=== PATIENT | female | born 1965 | race Caucasian/White ===

== ENCOUNTER 2017-08-19 11:30 | Inpatient (IN) | payer BC ==
[~2017-08-19] VITALS: Ht 170.2 cm; Wt 83.5 kg
--- NOTE | 2017-08-19 04:30 | NUR ---
Pt admitted from ER. A&Ox4. Came in for dizziness and syncopal episode this am. Assisted to bed from w/c. Noted with R hand heplock 20gauge. Denies dizziness and nausea at this time. VS stable. Reported she usually has sciatica pain, but denies pain at this time. Checklist done. ID band placed. Telemetry placed. Inventory check done. Bed in lowest position, locked, bed alarm on. Call light within reach. Will continue to monitor.
[2017-08-19] MEDS ORDERED: VIMOVO PO (11:38)
[2017-08-19] MEDS ORDERED: AMLO10TA2 PO (11:38)
--- NOTE | 2017-08-19 11:46 | NUR ---
Patient is resting comfortably in bed with eyes closed, NAD noted.
--- NOTE | 2017-08-19 12:58 | NUR ---
Patient is resting comfortably in bed with eyes closed, awaiting to be seen by MD. family at the bedside.
[2017-08-19] MEDS ORDERED: IV NS 1000 ML 1,000 ML IV ONE (13:30)
[2017-08-19 14:03] LABS: BASOPHILS % (AUTO) 0.5 % (0.0-2.0); EOSINOPHILS % (AUTO) 0.4 % (0.0-7.0); HEMATOCRIT 37.1 % (31.2-41.9); HEMOGLOBIN 12.4 g/dL (10.9-14.3); LYMPHOCYTES # (AUTO) 0.7 K/uL (20.0-40.0); LYMPHOCYTES % (AUTO) 8.9 % (20.5-51.5); MEAN CORPUSCULAR HEMOGLOBIN 29.7 uug (24.7-32.8); MEAN CORPUSCULAR HGB CONC 34 g/dL (32.3-35.6); MEAN CORPUSCULAR VOLUME 88.8 fL (75.5-95.3); MONOCYTES # (AUTO) 0.7 K/uL (2.0-10.0); NEUTROPHILS # (AUTO) 6.7 K/uL (1.8-8.9); NEUTROPHILS % (AUTO) 82.2 % (38.5-71.5); PLATELET COUNT (AUTO) 275 K/uL (179-408); RED BLOOD CELL COUNT(AUTO) 4.18 MIL/uL (3.63-4.92); WHITE BLOOD COUNT (AUTO) 8.2 K/uL (3.8-11.8)
[2017-08-19 14:08] LABS: POTASSIUM 4.8 mmol/L (3.5-5.1)
[2017-08-19 14:12] LABS: BILIRUBIN,TOTAL 0.2 mg/dL (0.2-1.0); TOTAL PROTEIN, SERUM 7.4 g/dL (6.4-8.2)
--- NOTE | 2017-08-19 14:16 | NUR ---
Pt c/o dizziness on movement even in bed. aware.
--- NOTE | 2017-08-19 14:50 | NUR ---
Pt denies nausea and requesting lunch.
[2017-08-19 15:00] LABS: *BILIRUBIN,URIN NEGATIVE (NEGATIVE); *BLOOD, URINE NEGATIVE (NEGATIVE); *CLARITY,URINE CLEAR (CLEAR); *COLOR,URINE YELLOW (YELLOW); *KETONES,URINE NEGATIVE (NEGATIVE); *PROTEIN,URINE NEGATIVE (NEGATIVE); *UROBILINOGEN,URINE 0.2 E.U./dl (NORMAL); LEUKOCYTE ESTERASE ,URINE NEGATIVE (NEGATIVE); NITRITE, URINE NEGATIVE (NEGATIVE)
--- NOTE | 2017-08-19 15:01 | NUR ---
Lunch provided, ate 100% of tray.
[2017-08-19 15:15] LABS: UGLUCOSE 2+ (NEGATIVE)
[2017-08-19 15:20] LABS: MUCUS,URINE FEW /LPF (0-FEW); SQUAMOUS EPITHELIAL CELL,UR FEW /HPF (NONE SEEN); WBC,URINE 0-3 /HPF (0-3)
[2017-08-19] MEDS ORDERED: ONDANSETRON 4 MG/2 ML VIAL ONE (15:24)
[2017-08-19] MEDS ORDERED: PANTOPRAZOLE SODIUM IV 40 MG in IV DEXTROSE 5% 100 ML IV ONE (15:28)
[2017-08-19] MEDS ORDERED: ONDANSETRON IV *ER 4 MG/2 ML VIAL IV ONE ×2 (15:30)
[2017-08-19] MEDS ORDERED: IV NORMAL SALINE 500 ML IV ONE (15:30)
[2017-08-19] MEDS ORDERED: MECLIZINE HCL 25 MG TABLET PO ONE (15:30)
[2017-08-19] MEDS ORDERED: PANTOPRAZOLE SODIUM 40 MG VIAL ONE (15:44)
[2017-08-19] MEDS ORDERED: PANTOPRAZOLE SODIUM 40 MG VIAL IV ONE (15:45)
[2017-08-19] MEDS ORDERED: MORPHINE SULFATE 2 MG/1 ML DISP.SYRIN IV ONE (15:49)
[2017-08-19] MEDS ORDERED: MORPHINE SULFATE 4 MG/1 ML DISP.SYRIN ONE (15:52)
[2017-08-19] MEDS ORDERED: Z GUARD REMEDY PASTE 57 GM TUBE TOP PRN (16:45)
[2017-08-19] MEDS ORDERED: ONDANSETRON 4 MG/2 ML VIAL IV PRN (16:45)
[2017-08-19] MEDS ORDERED: MAGNESIUM HYDROXIDE 30 ML LIQUID UDC PO PRN (16:45)
[2017-08-19] MEDS ORDERED: ACETAMINOPHEN 325 MG TABLET PO PRN (16:45)
[2017-08-19] MEDS ORDERED: DEXTROSE 50% 50 ML DISP.SYRIN IV PRN (16:45)
[2017-08-19] MEDS: IV NS 1000 ML 1,000 ML IV PRN (17:59)
[2017-08-19] MEDS: BLOOD SUGAR DIAGNOSTIC 1 EACH STRIP VI SCH ×3 (18:13→20:43)
[2017-08-19] MEDS: INSULIN REGULAR, HUMAN 300 UNIT/3 ML VIAL SQ PRN (18:19)
[2017-08-19] MEDS ORDERED: MORPHINE SULFATE 2 MG/1 ML DISP.SYRIN IV PRN (18:30)
[2017-08-19] MEDS: ONDANSETRON 4 MG/2 ML VIAL IV PRN (18:48)
--- NOTE | 2017-08-19 19:19 | NUR ---
pt c/o nausea and 8/10 sciatica pain. per pt, she cannot tolerate medications by mouth at this time due to her nausea. notified MD and obtained new order to d/c zofran 2mg IV Q6hrs PRN, start Zofran 2mg IV Q4hrs PRN, and Morphine 2mg IV Q4hs PRN for pain. Noted and carried out. Pt made aware. Addendum: 08/19/17 at 1939 by SAMEER GROVES RN incorrect time. correct time is 1840
[2017-08-19] MEDS: MORPHINE SULFATE 4 MG/1 ML DISP.SYRIN IV PRN (20:35)
[2017-08-19] MEDS: INSULIN REGULAR, HUMAN 300 UNITS/3 ML VIAL SQ PRN (20:45)
[2017-08-19 20:53] VITALS: BP 111/72
[2017-08-20] VITALS: BP 120/71
[2017-08-20] MEDS: MORPHINE SULFATE 4 MG/1 ML DISP.SYRIN IV PRN ×4 (00:26→19:51)
[2017-08-20] MEDS: BENZONATATE 100 MG CAPSULE PO PRN ×3 (01:39→19:59)
[2017-08-20] MEDS: ZOLPIDEM 5 MG TABLET PO PRN (01:42)
[2017-08-20 04:00] VITALS: BP 106/67
[2017-08-20] MEDS: IV NS 1000 ML 1,000 ML IV PRN ×2 (04:55→20:06)
--- NOTE | 2017-08-20 05:37 | NUR ---
C/O PAIN ON BUTTOCKS RADIATING TO R ANKLE THROUGHOUT THE NIGHT, WAS GIVEN MORPHINE ORDERED, PT STATED EFFECTED, WAS GIVEN AMBIEN LAST NIGHT , SHE SAID SHE WAS ABLE TO SLEEP AFTERWARDS. STILL ON IV FLUIDS. AMBULATED TO BATHROOM. C/O PRODUCTIVE COUGH, TONY HIGGINBOTHAM MADE AWARE, WITH NEW ORDER TO GIVE TESSALON PRN. CONTINUED TO MONITOR. SAFETY MEASURES MAINTAINED. CALL LIGHT WITHIN REACH.
[2017-08-20 06:24] LABS: BASOPHILS % (AUTO) 0.3 % (0.0-2.0); EOSINOPHILS # (AUTO) 0.1 K/uL (0.0-0.7); EOSINOPHILS % (AUTO) 1.6 % (0.0-7.0); HEMATOCRIT 33.7 % (31.2-41.9); HEMOGLOBIN 11.5 g/dL (10.9-14.3); LYMPHOCYTES # (AUTO) 1.2 K/uL (20.0-40.0); LYMPHOCYTES % (AUTO) 18.1 % (20.5-51.5); MEAN CORPUSCULAR HEMOGLOBIN 30.4 uug (24.7-32.8); MEAN CORPUSCULAR HGB CONC 34 g/dL (32.3-35.6); MONOCYTES # (AUTO) 0.7 K/uL (2.0-10.0); MONOCYTES % (AUTO) 10.1 % (0.0-11.0); NEUTROPHILS # (AUTO) 4.6 K/uL (1.8-8.9); NEUTROPHILS % (AUTO) 69.9 % (38.5-71.5); PLATELET COUNT (AUTO) 241 K/uL (179-408); RED BLOOD CELL COUNT(AUTO) 3.78 MIL/uL (3.63-4.92); WHITE BLOOD COUNT (AUTO) 6.6 K/uL (3.8-11.8)
[2017-08-20 06:40] LABS: CREATININE 0.8 mg/dL (0.6-1.3); MAGNESIUM 1.5 mg/dL (1.8-2.4); PHOSPHOROUS 2.9 mg/dL (2.5-4.9); POTASSIUM 3.7 mmol/L (3.5-5.1)
[2017-08-20] MEDS: BLOOD SUGAR DIAGNOSTIC 1 EACH STRIP VI SCH ×4 (07:14→20:02)
--- NOTE | 2017-08-20 07:15 | NUR ---
BS 170. ENDORSED TO AM NURSE.
--- NOTE | 2017-08-20 07:30 | NUR ---
Received report from shift coordinator nurse, patient in bed awake, no evidence of distress noted at this time, bed in low position, side rails up x2. Bed alarm on. Requested that patient not get up for the first time without assistance for gait evaluation.
[2017-08-20] MEDS: INSULIN REGULAR, HUMAN 300 UNIT/3 ML VIAL SQ PRN ×2 (10:01→12:40)
[2017-08-20 11:20] VITALS: BP 108/64
[2017-08-20] MEDS: MAGNESIUM SULFATE/D5W 100 ML IV SCH ×2 (11:52→13:40)
[2017-08-20 15:38] VITALS: BP 107/72
[2017-08-20] MEDS: GABAPENTIN 300 MG CAPSULE PO SCH (17:11)
--- NOTE | 2017-08-20 17:30 | NUR ---
Patient was placed on isolation for influenza B.
--- NOTE | 2017-08-20 18:46 | NUR ---
Patient has been compliant with care. No episodes of syncope today. Patient did however need some help ambulating to restroom due to mild dizziness. Currently patient in bed, no distress noted, bed in low position, side rails up x2.
--- NOTE | 2017-08-20 19:00 | NUR ---
Received patient awake, in bed, complaining of IV site and low back pain that radiating to her right leg. Assessed intensity, duration and frequency of pain. Instructed patient some non pharmaceutical measures to relieve discomforts.eturn demonstration like deep breathing exercises. Will monitor.
--- NOTE | 2017-08-20 19:51 | NUR ---
Morphine given as ordered and needed.Will continue to monitor.
[2017-08-20] MEDS: INSULIN REGULAR, HUMAN 300 UNITS/3 ML VIAL SQ PRN (19:57)
[2017-08-20] MEDS: OSELTAMIVIR PHOSPHATE 75 MG CAPSULE PO SCH (19:58)
[2017-08-20 20:27] VITALS: BP 118/62
--- NOTE | 2017-08-20 21:00 | NUR ---
Assisted to the bathroom. Complaining of dizziness. Safety measures and fall precaution maintained.
--- NOTE | 2017-08-20 22:54 | NUR ---
Tylenol given for complaint of headache. Will monitor.
[2017-08-21 00:13] VITALS: BP 114/71
[2017-08-21] MEDS: MORPHINE SULFATE 4 MG/1 ML DISP.SYRIN IV PRN (01:37)
[2017-08-21] MEDS ORDERED: PSEUDOEPHEDRINE HCL 30 MG TABLET PO PRN (02:15)
[2017-08-21] MEDS: ZOLPIDEM 5 MG TABLET PO PRN (02:31)
[2017-08-21 04:16] VITALS: BP 100/64
--- NOTE | 2017-08-21 06:15 | NUR ---
Slept in between care. No further complaint of buttock and left leg pain presented. IV site slightly red and complaint of pain when touched . Three people attempted to insert new IV site but to no avail. Will endorse to oncoming nurse otherwise no significant event reported all night. Continue current plan of care.
[2017-08-21] MEDS: BLOOD SUGAR DIAGNOSTIC 1 EACH STRIP VI SCH ×2 (06:32→11:49)
--- NOTE | 2017-08-21 07:20 | NUR ---
Received report from night nurse nurse, patient in bed awake, no evidence of distress noted at this time, bed in low position, side rails up x2, bed alarm on.
[2017-08-21] MEDS: OSELTAMIVIR PHOSPHATE 75 MG CAPSULE PO SCH (08:30)
[2017-08-21] MEDS: HYDROCODONE/APAP 5-325MG TABLET PO PRN ×2 (08:30→16:04)
[2017-08-21] MEDS: GABAPENTIN 300 MG CAPSULE PO SCH ×2 (08:30→12:13)
[2017-08-21] MEDS: ONDANSETRON 4 MG/2 ML VIAL IV PRN (08:32)
[2017-08-21 11:40] VITALS: BP 107/68
[2017-08-21] MEDS: INSULIN REGULAR, HUMAN 300 UNIT/3 ML VIAL SQ PRN (12:11)
[2017-08-21] MEDS ORDERED: GABA-534 PO (12:20)
[2017-08-21] MEDS ORDERED: OSEL75CA PO (12:20)
[2017-08-21 16:17] VITALS: BP 107/63
--- NOTE | 2017-08-21 17:00 | NUR ---
Patient was given discharge instructions, pharmacy consultation for new medications, and IV was removed. All patient education performed for discharge and prescription given to patient. Patient was taken to parking lot by wheel chair to be met by room mate.
== END 2017-08-21 17:00 | disposition home or self-care (01) | DRG 866 ==
LOC: ER 11:30 → TELE 16:05
PROVIDERS: ADMIT Internal Medicine; ATTEND Internal Medicine
DX: J10.2 Influenza due to other identified influenza virus with gastrointestinal manifestations (principal); E83.42 Hypomagnesemia; E86.0 Dehydration; M54.30 Sciatica, unspecified side; I95.1 Orthostatic hypotension; I10 Essential (primary) hypertension; E11.9 Type 2 diabetes mellitus without complications; R11.2 Nausea with vomiting, unspecified
CPT/HCPCS: 36415; 70030-TC; 70450; 71045; 83735; 84100; 85025; 85610; 87400; 93005; 93307; 97165; A4663; C9113; J1815; J2270; J2405; J3475; J7030

== ENCOUNTER 2020-11-03 10:14 | Inpatient (IN) | payer BC, OTHER ==
[2020-11-03] VITALS (9 sets, daily range): BP systolic 95–138; BP diastolic 59–95
[~2020-11-03] VITALS: Ht 172.7 cm; Wt 82.1 kg
[~2020-11-03 10:14] MED LIST: AMLO10TA59 PO; GABA-534 PO; OSEL75CA PO; VIMOVO PO
[2020-11-03] MEDS ORDERED: HYDR12.55 PO (10:33)
[2020-11-03] MEDS ORDERED: ATOR10TA PO (10:33)
[2020-11-03] MEDS ORDERED: DAPA5TAB PO (10:33)
[2020-11-03] MEDS ORDERED: FEXO180T94 PO (10:33)
[2020-11-03] MEDS ORDERED: METF-495 PO (10:33)
[2020-11-03] MEDS ORDERED: ONDANSETRON 4 MG/2 ML VIAL IV ONE (10:45)
[2020-11-03] MEDS ORDERED: HYDROCODONE/APAP 5-325MG TABLET PO ONE (10:45)
[2020-11-03] MEDS ORDERED: HYDROCODONE/APAP 5-325MG TABLET ONE (10:47)
--- NOTE | 2020-11-03 10:48 | NUR ---
left 114/81 right 116/55 pulse same at 103
[2020-11-03] MEDS ORDERED: ONDANSETRON 4 MG/2 ML VIAL ONE (10:50)
--- NOTE | 2020-11-03 11:04 | NUR ---
Pt c/o dyspnea, primarily w/max inhailation and movement. Also c/o CP and upper back pain. Pt denies cough, dizziness, n/v, no distress noted. EKG to . Started IV 20g, left AC, ayan blood, given to general laborer.
[2020-11-03 11:09] LABS: BASOPHILS % (AUTO) 0.4 % (0.0-2.0); EOSINOPHILS # (AUTO) 0.3 K/uL (0.0-0.7); EOSINOPHILS % (AUTO) 2.9 % (0.0-7.0); HEMATOCRIT 44.3 % (31.2-41.9); LYMPHOCYTES # (AUTO) 2.8 K/uL (20.0-40.0); LYMPHOCYTES % (AUTO) 31.9 % (20.5-51.5); MEAN CORPUSCULAR HEMOGLOBIN 30.8 uug (24.7-32.8); MEAN CORPUSCULAR HGB CONC 34 g/dL (32.3-35.6); MEAN CORPUSCULAR VOLUME 90.9 fL (75.5-95.3); MONOCYTES # (AUTO) 0.7 K/uL (2.0-10.0); MONOCYTES % (AUTO) 7.7 % (0.0-11.0); NEUTROPHILS % (AUTO) 57.1 % (38.5-71.5); PLATELET COUNT (AUTO) 285 K/uL (179-408); RED BLOOD CELL COUNT(AUTO) 4.87 MIL/uL (3.63-4.92); WHITE BLOOD COUNT (AUTO) 8.8 K/uL (3.8-11.8)
[2020-11-03 11:10] LABS: CREATININE 0.9 mg/dL (0.6-1.3); POTASSIUM 3.2 mmol/L (3.5-5.1)
[2020-11-03 11:24] LABS: BILIRUBIN,TOTAL 0.3 mg/dL (0.2-1.0); TOTAL PROTEIN, SERUM 8.4 g/dL (6.4-8.2)
[2020-11-03] MEDS ORDERED: IV NORMAL SALINE 1000 ML BAG IV ONE ×2 (11:30→13:15)
--- NOTE | 2020-11-03 11:45 | NUR ---
Pt was desaturating to 89-90%, placed pt on 2lpm O2, via NC. Sats incresed to 94+%
[2020-11-03] MEDS ORDERED: SWABABLE VALVE TRANSFER SET EA MC ONE (12:02)
[2020-11-03] MEDS ORDERED: IOHEXOL 350 100 ML INFUS..BTL ONE (12:02)
[2020-11-03] MEDS ORDERED: IV NORMAL SALINE 250 ML IV ONE (12:02)
[2020-11-03] MEDS ORDERED: MORPHINE SULFATE 2 MG/1 ML DISP.SYRIN IV ONE (12:15)
[2020-11-03] MEDS ORDERED: MORPHINE SULFATE 2 MG/1 ML DISP.SYRIN ONE (12:58)
[2020-11-03] MEDS ORDERED: levoFLOXacin 750 MG/D5W 150 ML PIGGYBACK IV ONE (13:15)
[2020-11-03] MEDS ORDERED: KETOROLAC TROMETHAMINE 15 MG INJ IVP ONE (13:15)
[2020-11-03] MEDS ORDERED: KETOROLAC TROMETHAMINE 15 MG INJ ONE (13:37)
[2020-11-03] MEDS ORDERED: levoFLOXacin 750MG/D5W 150 ML IV ONE (13:39)
[2020-11-03] MEDS ORDERED: DEXTROSE 50% 50 ML DISP.SYRIN IV PRN (13:45)
[2020-11-03] MEDS ORDERED: ACETAMINOPHEN 650 MG SUPP.RECT RC PRN (13:45)
[2020-11-03] MEDS ORDERED: DEXAMETHASONE SOD PHOSPHATE 4 MG INJ IV ONE (13:45)
--- NOTE | 2020-11-03 13:48 | NUR ---
no tele bed available at this time.
[2020-11-03] MEDS ORDERED: FEXOFENADINE HCL 180 MG TABLET PO PRN (14:00)
--- NOTE | 2020-11-03 14:51 | NUR ---
Called report to YUAN Mark. Pt now going to CCU 3.
--- NOTE | 2020-11-03 15:28 | NUR ---
Received report from ER nurse Yoav. Patient brought up to unit, oriented call light system, bed mechanics and television usage. Patient assessment performed, Bedside commode given and placed on 2L nasal cannula. Patient noted to bee in sinus rhythm, hemodynamically stable and complains of pain in back and chest with movement.
[2020-11-03 15:54] LABS: *BILIRUBIN,URIN NEGATIVE (NEGATIVE); *BLOOD, URINE NEGATIVE (NEGATIVE); *CLARITY,URINE SLIGHTLY CLOUDY (CLEAR); *COLOR,URINE YELLOW (YELLOW); *KETONES,URINE NEGATIVE (NEGATIVE); *UROBILINOGEN,URINE 0.2 E.U./dl (NORMAL); LEUKOCYTE ESTERASE ,URINE NEGATIVE (NEGATIVE); NITRITE, URINE NEGATIVE (NEGATIVE); UGLUCOSE 2+ (NEGATIVE)
[2020-11-03 16:04] LABS: BACTERIA,URINE NONE SEEN /HPF (NONE SEEN); RBC,URINE 0-3 /HPF (0-3); SQUAMOUS EPITHELIAL CELL,UR MODERATE /HPF (NONE SEEN); WBC,URINE 0-3 /HPF (0-3)
[2020-11-03] MEDS ORDERED: POTASSIUM CHLORIDE 20 MEQ TAB.PRT.SR PO ONE (16:45)
[2020-11-03] MEDS: CEFTRIAXONE 1 G in IV DEXTROSE 5% 50 ML IV SCH (17:02)
[2020-11-03] MEDS: BLOOD SUGAR DIAGNOSTIC 1 EACH STRIP VI SCH ×2 (17:03→21:12)
[2020-11-03] MEDS: ATORVASTATIN 10 MG TABLET PO SCH (17:04)
[2020-11-03] MEDS: HYDROCODONE/APAP 10-325 MG TABLET PO PRN (17:35)
[2020-11-03] MEDS: ONDANSETRON 4 MG/2 ML VIAL IV PRN (17:35)
[2020-11-03] MEDS: AZITHROMYCIN IV 500 MG in IV DEXTROSE 5% 250 ML IV SCH (20:03)
[2020-11-03] MEDS: ENOXAPARIN SODIUM 40 MG/0.4 ML DISP.SYRIN SQ SCH (20:29)
[2020-11-03] MEDS: ACETAMINOPHEN 325 MG TABLET PO PRN (20:40)
--- NOTE | 2020-11-03 20:45 | NUR ---
Patient started on incentive spirometry. Patient instructed on use of the device. Initial inspiration measurement measures >250mL. Informed patient that the goal for tonight is to see if she can reach the 500mL level by 7am, however any improvement beyond the initial 250mL volume will be welcome. Patient seemed enthusiastic about using the device.
[2020-11-03] MEDS: INSULIN REGULAR, HUMAN 300 UNITS/3 ML VIAL SQ PRN (21:14)
[2020-11-04] VITALS (12 sets, daily range): BP systolic 104–135; BP diastolic 64–80
[2020-11-04] MEDS: ZOLPIDEM 5 MG TABLET PO PRN (02:03)
[2020-11-04 05:29] LABS: BASOPHILS % (AUTO) 0.3 % (0.0-2.0); HEMATOCRIT 41.5 % (31.2-41.9); HEMOGLOBIN 13.8 g/dL (10.9-14.3); LYMPHOCYTES % (AUTO) 10.6 % (20.5-51.5); MEAN CORPUSCULAR HEMOGLOBIN 30.6 uug (24.7-32.8); MEAN CORPUSCULAR HGB CONC 33 g/dL (32.3-35.6); MEAN CORPUSCULAR VOLUME 91.8 fL (75.5-95.3); MONOCYTES # (AUTO) 0.2 K/uL (2.0-10.0); MONOCYTES % (AUTO) 1.7 % (0.0-11.0); NEUTROPHILS # (AUTO) 7.9 K/uL (1.8-8.9); NEUTROPHILS % (AUTO) 87.4 % (38.5-71.5); PLATELET COUNT (AUTO) 263 K/uL (179-408); RED BLOOD CELL COUNT(AUTO) 4.53 MIL/uL (3.63-4.92); WHITE BLOOD COUNT (AUTO) 9.1 K/uL (3.8-11.8)
[2020-11-04 06:30] LABS: CREATININE 0.8 mg/dL (0.6-1.3); POTASSIUM 4.2 mmol/L (3.5-5.1)
[2020-11-04 06:31] LABS: BILIRUBIN,TOTAL 0.3 mg/dL (0.2-1.0); TOTAL PROTEIN, SERUM 7.7 g/dL (6.4-8.2)
[2020-11-04] MEDS: BLOOD SUGAR DIAGNOSTIC 1 EACH STRIP VI SCH ×4 (06:58→20:37)
[2020-11-04] MEDS: INSULIN REGULAR, HUMAN 300 UNIT/3 ML VIAL SQ PRN ×4 (06:59→20:38)
--- NOTE | 2020-11-04 07:00 | NUR ---
Patient has made satisfactory progress with incentive spirometry. Patient claims she reached 1000mL late last night, however I did not see this. I had her do her exercises and she was able to reach 500mL in my presence, which is a marked improvement from when we started where she barely could reach 250mL. Encouraged her to use her IS 15-20 times every hour and she should see better results during the day while awake.
--- NOTE | 2020-11-04 07:17 | NUR ---
Dr Lee in the unit to see patient, full report given.
[2020-11-04] MEDS ORDERED: CYCLOBENZAPRINE HCL 10 MG TABLET PO PRN (07:45)
[2020-11-04] MEDS: DEXAMETHASONE SOD PHOSPHATE 4 MG INJ IV SCH (08:14)
[2020-11-04] MEDS: NAPROXEN 500 MG TABLET PO SCH ×3 (08:14→21:19)
[2020-11-04] MEDS: HYDROCHLOROTHIAZIDE 12.5 MG CAPSULE PO SCH (08:14)
[2020-11-04] MEDS: LIDOCAINE 5% PATCH TD SCH (08:15)
[2020-11-04] MEDS: AMLODIPINE 10 MG TABLET PO SCH (08:15)
[2020-11-04] MEDS ORDERED: Dapagliflozin Propanediol (Farxiga) 5 MG) PO SCH (09:00)
[2020-11-04] MEDS ORDERED: PANTOPRAZOLE SODIUM 40 MG TABLET.DR PO SCH (09:00)
[2020-11-04] MEDS: HYDROCODONE/APAP 10-325 MG TABLET PO PRN (10:30)
[2020-11-04] MEDS: ONDANSETRON 4 MG/2 ML VIAL IV PRN ×2 (10:30→18:24)
[2020-11-04] MEDS: CEFTRIAXONE 1 G in IV DEXTROSE 5% 50 ML IV SCH (15:42)
[2020-11-04] MEDS: ATORVASTATIN 10 MG TABLET PO SCH (17:20)
--- NOTE | 2020-11-04 18:39 | NUR ---
Patient is still alert and oriented x4. Patient continues to be on 1L NC, Patient able to use the bedside commode and tolerating independent transfer to commode. Patient noted to bee in sinus rhythm, hemodynamically stable and had nausea with small amount of vomiting, one dose of zofran given.
[2020-11-04] MEDS: AZITHROMYCIN IV 500 MG in IV DEXTROSE 5% 250 ML IV SCH (19:24)
--- NOTE | 2020-11-04 20:00 | NUR ---
RECEIVED PT ALERT & ORIENTED X4 DENIES PAIN THIS TIME. IVF NS @ TKO RATE FOR IVPB MEDS ON LAC. ON O2 @ 1L NC W/ O2 SAT OF 94%. NOT IN ANY DISTRESS. LAB CALLED PCR RESULT IS NEGATIVE.
[2020-11-04] MEDS: ENOXAPARIN SODIUM 40 MG/0.4 ML DISP.SYRIN SQ SCH (20:40)
[2020-11-04] MEDS: INSULIN REGULAR, HUMAN 300 UNITS/3 ML VIAL SQ PRN (20:55)
--- NOTE | 2020-11-04 23:34 | NUR ---
REPORT GIVEN TO EJ BOLDEN FOR COTINUITY OF CARE.
[2020-11-05] MEDS: ZOLPIDEM 5 MG TABLET PO PRN ×2 (00:14→22:36)
[2020-11-05] MEDS: ACETAMINOPHEN 325 MG TABLET PO PRN (00:14)
[2020-11-05 00:27] VITALS: BP 105/64
[2020-11-05 04:44] VITALS: BP 108/66
[2020-11-05] MEDS: NAPROXEN 500 MG TABLET PO SCH ×3 (05:44→22:36)
[2020-11-05 06:40] LABS: BASOPHILS % (AUTO) 0.2 % (0.0-2.0); HEMATOCRIT 38.8 % (31.2-41.9); HEMOGLOBIN 12.9 g/dL (10.9-14.3); LYMPHOCYTES # (AUTO) 1.7 K/uL (20.0-40.0); LYMPHOCYTES % (AUTO) 18.1 % (20.5-51.5); MEAN CORPUSCULAR HEMOGLOBIN 30.2 uug (24.7-32.8); MEAN CORPUSCULAR HGB CONC 33 g/dL (32.3-35.6); MEAN CORPUSCULAR VOLUME 90.6 fL (75.5-95.3); MONOCYTES # (AUTO) 0.7 K/uL (2.0-10.0); MONOCYTES % (AUTO) 7.5 % (0.0-11.0); NEUTROPHILS % (AUTO) 74.2 % (38.5-71.5); PLATELET COUNT (AUTO) 261 K/uL (179-408); RED BLOOD CELL COUNT(AUTO) 4.28 MIL/uL (3.63-4.92); WHITE BLOOD COUNT (AUTO) 9.5 K/uL (3.8-11.8)
[2020-11-05 07:24] LABS: CREATININE 0.9 mg/dL (0.6-1.3); MAGNESIUM 2.4 mg/dL (1.8-2.4); PHOSPHOROUS 3.5 mg/dL (2.5-4.9); POTASSIUM 3.6 mmol/L (3.5-5.1)
--- NOTE | 2020-11-05 08:00 | NUR ---
RECEIVED PATIENT IN BED AWAKE ALERT AND ORIENTED ON O2 AT 1L/M BY NASAL CANULLA WITH NO SOB AT THIS TIME.TELE IS SR WITH NO ECTOPY INCENTIVE SPIROMETER ENCOURAGED AND SHE IS TOLERATING WELL.NO S/S OF HYPO/HYPERGLYCEMIC REACTIONS AT THIS TIME.HEPLOCK LEFT AC IS INTACT WITH NO S/S OF INFILTERATION AT THIS TIME CALL LIGHTS AND PERSONAL BELONGINGS ARE WITHIN EASY REACH MADE COMFORTABLE WILL CONTINUE TO OBSERVE.
[2020-11-05] MEDS: BLOOD SUGAR DIAGNOSTIC 1 EACH STRIP VI SCH ×4 (08:14→20:43)
[2020-11-05] MEDS: HYDROCHLOROTHIAZIDE 12.5 MG CAPSULE PO SCH (08:16)
[2020-11-05] MEDS: INSULIN REGULAR, HUMAN 300 UNIT/3 ML VIAL SQ PRN ×4 (08:16→20:39)
[2020-11-05] MEDS: DEXAMETHASONE SOD PHOSPHATE 4 MG INJ IV SCH (08:17)
[2020-11-05] MEDS: AMLODIPINE 10 MG TABLET PO SCH (08:17)
[2020-11-05] MEDS: PANTOPRAZOLE SODIUM 40 MG TABLET.DR PO SCH (08:17)
[2020-11-05] MEDS: LIDOCAINE 5% PATCH TD SCH (08:18)
[2020-11-05 11:34] VITALS: BP 117/76
[2020-11-05 15:34] VITALS: BP 119/70
[2020-11-05] MEDS: CEFTRIAXONE 1 G in IV DEXTROSE 5% 50 ML IV SCH (15:56)
[2020-11-05] MEDS: ATORVASTATIN 10 MG TABLET PO SCH (17:00)
--- NOTE | 2020-11-05 17:38 | NUR ---
REMAIN ON ANTIBIOTICS ORDERED WITH NO ADVERSE OR ALLERGIC REACTIONS AT THIS TIME INSULIN GIVEN PER SLIDING SCALE NO S/S OF HYPERGLYCEMIC REACTIONS AT THIS TIME WILL CONTINUE TO OBSERVE.
[2020-11-05] MEDS ORDERED: AZITHROMYCIN 250 MG TABLET PO SCH (18:00)
--- NOTE | 2020-11-05 19:15 | NUR ---
received patient awake , oriented , iv intact , denies distress, oxgen 2 l
[2020-11-05 20:00] VITALS: BP 118/70
[2020-11-05] MEDS: ENOXAPARIN SODIUM 40 MG/0.4 ML DISP.SYRIN SQ SCH (20:27)
[2020-11-06 00:03] VITALS: BP 112/62
[2020-11-06 04:15] VITALS: BP 107/61
[2020-11-06] MEDS: PANTOPRAZOLE SODIUM 40 MG TABLET.DR PO SCH (05:58)
[2020-11-06] MEDS: NAPROXEN 500 MG TABLET PO SCH ×2 (05:58→13:00)
--- NOTE | 2020-11-06 06:00 | NUR ---
patient is awake , oriented , denies distress , iv intact , continent , bs 183
[2020-11-06] MEDS: BLOOD SUGAR DIAGNOSTIC 1 EACH STRIP VI SCH ×2 (06:23→11:35)
[2020-11-06] MEDS: INSULIN REGULAR, HUMAN 300 UNIT/3 ML VIAL SQ PRN ×2 (06:23→11:17)
[2020-11-06 06:38] LABS: BASOPHILS % (AUTO) 0.2 % (0.0-2.0); HEMATOCRIT 39.9 % (31.2-41.9); HEMOGLOBIN 13.1 g/dL (10.9-14.3); LYMPHOCYTES # (AUTO) 2.6 K/uL (20.0-40.0); LYMPHOCYTES % (AUTO) 25.2 % (20.5-51.5); MEAN CORPUSCULAR HEMOGLOBIN 29.8 uug (24.7-32.8); MEAN CORPUSCULAR HGB CONC 33 g/dL (32.3-35.6); MEAN CORPUSCULAR VOLUME 90.9 fL (75.5-95.3); MONOCYTES # (AUTO) 0.7 K/uL (2.0-10.0); MONOCYTES % (AUTO) 6.5 % (0.0-11.0); NEUTROPHILS # (AUTO) 6.9 K/uL (1.8-8.9); NEUTROPHILS % (AUTO) 68.1 % (38.5-71.5); PLATELET COUNT (AUTO) 254 K/uL (179-408); RED BLOOD CELL COUNT(AUTO) 4.39 MIL/uL (3.63-4.92); WHITE BLOOD COUNT (AUTO) 10.2 K/uL (3.8-11.8)
[2020-11-06 06:59] LABS: CREATININE 0.6 mg/dL (0.6-1.3); POTASSIUM 3.1 mmol/L (3.5-5.1)
[2020-11-06] MEDS ORDERED: POTASSIUM CHLORIDE 20 MEQ TAB.PRT.SR PO ONE (08:00)
[2020-11-06 08:20] VITALS: BP 123/80
[2020-11-06] MEDS: LIDOCAINE 5% PATCH TD SCH (08:34)
[2020-11-06] MEDS: DEXAMETHASONE SOD PHOSPHATE 4 MG INJ IV SCH (08:34)
[2020-11-06] MEDS: HYDROCHLOROTHIAZIDE 12.5 MG CAPSULE PO SCH (08:34)
[2020-11-06] MEDS: AMLODIPINE 10 MG TABLET PO SCH (08:34)
--- NOTE | 2020-11-06 09:10 | NUR ---
Mariaelena Lee in the unit to see and assess pt. full report given .MD asked if pt still uses oxygen and informed MD that pt currently still on oxygen however this morning when I checked VS, pt had oxygen off while eating and room air saturation was 94%. per MD, titrate pt off of oxygen as tolerated.
--- NOTE | 2020-11-06 10:00 | NUR ---
titrating pt off of oxygen. room air saturation 95%. denies SOB at this time. informed pt to call for nurse if she feels short of breath. verbalized understanding
[2020-11-06] MEDS ORDERED: LIDO30AD10 TD (10:58)
[2020-11-06] MEDS ORDERED: AZIT250T13 PO (10:58)
--- NOTE | 2020-11-06 11:27 | NUR ---
received discharge orders for pt. pt aware of discharge orders and states [employer] Fuad spoke to her about it this morning. pt on room air with saturation 95-97%. denies SOB or chest pain at this time. per pt, she drove to hospital and will be driving home. asked if there was someone who can pick her up and pt stated "oh no, I'm fine really. i can drive home. I feel much better".
[2020-11-06 12:00] VITALS: BP 122/77
--- NOTE | 2020-11-06 12:26 | NUR ---
pt educated on discharge instructions including medication orders, F/U with PCP, return to ER for worsening symptoms, etc. pt alert & oriented x 4. pt verbalized understanding of all pt education. pt given copy of discharge paperwork. discharge instructions signed by pt. went over belongings inventory with pt and signed. pt ready for discharge, just finishing lunch.
[2020-11-06] MEDS: ACETAMINOPHEN 325 MG TABLET PO PRN (12:38)
--- NOTE | 2020-11-06 14:25 | NUR ---
pt discharged in stable condition. pt ambulatory. left with all discharge instructions and belongings.
== END 2020-11-06 14:30 | disposition home or self-care (01) | DRG 193 ==
LOC: ER 10:14 → CCU 14:49 → TELE3 11-04 23:32
PROVIDERS: ADMIT Nurse Practitioner Acute Care; ATTEND Nurse Practitioner Acute Care
DX: J15.9 Unspecified bacterial pneumonia (principal); J96.01 Acute respiratory failure with hypoxia; J98.11 Atelectasis; Z20.822 Contact with and (suspected) exposure to COVID-19; E78.5 Hyperlipidemia, unspecified; E66.9 Obesity, unspecified; E87.6 Hypokalemia; Z91.040 Latex allergy status; I10 Essential (primary) hypertension; Z68.27 Body mass index [BMI] 27.0-27.9, adult; K76.0 Fatty (change of) liver, not elsewhere classified; R07.89 Other chest pain; Z91.09 Other allergy status, other than to drugs and biological substances; E11.9 Type 2 diabetes mellitus without complications; Z79.84 Long term (current) use of oral hypoglycemic drugs
CPT/HCPCS: 36415; 70030-TC; 71045; 71275; 83605; 83615; 83735; 84100; 85025; 85730; 86140; 87040; 93005; A4663; G0378; J0456; J0696; J1100; J1650; J1815; J1885; J1956; J2270; J2405; J7030; J7050; J7060; Q0144; Q9967; U0003